=== PATIENT | male | born 1990 | race American Indian/Alaskan Native ===

== ENCOUNTER 2017-10-16 20:51 | Emergency (ER) | payer OTHER ==
[2017-10-16 21:54] VITALS: BP 119/74
[2017-10-16] MEDS ORDERED: NACL 0.9% 1000 ML 1,000 ML IV ONE (21:54)
[2017-10-16 22:56] LABS: Basophils % (Auto) 0.3 % (0.0-1.8); Eosinophils % (Auto) 0.1 % (0.0-4.3); Hematocrit 45.9 % (35.5-45.6); Hemoglobin 15.5 gm/dl (11.8-15.2); Lymphocytes # (Auto) 1.3 K/mm3 (1.2-5.4); Lymphocytes % (Auto) 37.2 % (13.4-35.0); Mean Corpuscular HGB Conc 34 % (32-34); Mean Corpuscular Hemoglobin 30 pg (28-32); Mean Corpuscular Volume 89 fl (84-94); Monocytes # (Auto) 0.4 K/mm3 (0.0-0.8); Monocytes % (Auto) 11.5 % (0.0-7.3); Platelet Count 161 K/mm3 (140-440); Red Blood Count 5.14 M/mm3 (3.65-5.03); Red Cell Distribution Width 13.8 % (13.2-15.2)
[2017-10-16 23:06] LABS: INR 0.91 (0.87-1.13); Partial Thromboplastin Time 34.5 Sec. (24.2-36.6)
[2017-10-16 23:16] LABS: Alanine Aminotransferase 21 units/L (7-56); Albumin 3.9 g/dL (3.9-5); BUN/Creatinine Ratio 10; Blood Urea Nitrogen 10 mg/dL (9-20); Calcium 8.5 mg/dL (8.4-10.2); Hemolysis Index 5; Lipase 21 units/L (13-60)
== END 2017-10-17 07:39 | disposition left against medical advice (07) ==
LOC: ED 20:51
DX: K92.2 Gastrointestinal hemorrhage, unspecified (principal); Z53.21 Procedure and treatment not carried out due to patient leaving prior to being seen by health care provider
CPT/HCPCS: 36415; 80053; 83690; 85025; 85610; 85730; 86850; 86900; 86901

== ENCOUNTER 2017-11-24 23:27 | Emergency (ER) | payer SELFPAY ==
[2017-11-25 00:51] LABS: Bilirubin,Urine NEG (Negative); Blood,Urine NEG (Negative); Color,Urine Yellow (Yellow); Mucus,Urine FEW /HPF; Protein,Urine <15 mg/dL mg/dL (Negative)
[2017-11-25 00:59] VITALS: BP 160/82
--- NOTE | 2017-11-25 01:23 | Emergency Department Report ---
Chief Complaint: Urogenital-Male Stated Complaint: STD CHECK Time Seen by Provider: 11/25/17 01:23 - HPI History of Present Illness: Patient is a 27-year-old male presents to the ED complaining of penile discharge and wants an STD check check. He denies any testicular swelling pain lesions dysuria, fever, nausea vomiting or abdominal pain - ROS Review of Systems: As noted in HPI - Exam Vital Signs: Vital Signs 11/25/17 00:57 Temperature 98.9 F Pulse Rate 98 H Respiratory 18 Rate Blood Pressure 160/82 [Left] O2 Sat by Pulse 100 Oximetry Physical Exam: GENERAL: Alert and oriented x3, no apparent distress, Normal Gait, atraumatic. HEAD: Head is normocephalic and a-traumatic. MSE screening note: Focused history and physical exam performed. Due to findings the following was ordered: ED Medical Decision Making - Medical Decision Making 27-year-old male presents for STD check I discussed with the patient and this is is nonmedical emergency and would have to speak to registration about a fee Patient unable to pay fee, so he was screened out I discussed the patient and gave him [facility] referral She is stable he is in no acute or respiratory distress he sitting comfortably in the ED room. Referrals given ED Disposition for MSE Clinical Impression: Screen for STD (sexually transmitted disease) Disposition: - TO HOME OR SELFCARE Is pt being admited?: No Does the pt Need Aspirin: No Condition: Stable Referrals: SHAMAR DOVE MD [Primary Care Provider] - 3-[address] [facility] [Outside] - 3-5 Days [facility] [Outside] - 3-5 Days
== END 2017-11-25 01:30 | disposition home or self-care (01) ==
LOC: ED 23:27
DX: Z11.3 Encounter for screening for infections with a predominantly sexual mode of transmission (principal); R36.9 Urethral discharge, unspecified
CPT/HCPCS: 81001; 99283